=== PATIENT | male | born 1970 | race Caucasian/White ===

== ENCOUNTER 2016-08-05 10:51 | Day surgery (SDC) | payer OTHER ==
[~2016-08-05 10:51] MED LIST: BACITRACIN 50,000 UNITS/10 ML SYR IRR ONE; BUPIVACAINE 0.5% 30 ML SDV ONE; DEXAMETHASONE 4 MG/ML VIAL ONE; LIDOCAINE 2% 5 ML SDV ONE; ROPIVACAINE HCL 20 MG/10 ML INJ EP ONE; ceFAZolin 2 GM/DEXTROSE 100 ML IV ONE
[2016-08-05] MEDS ORDERED: LR 1,000 ML IV ONE (11:35)
[2016-08-05] MEDS ORDERED: CEFAZOLIN 2 GM/DEXTROSE/100 ML BAG IV ONE (11:38)
[2016-08-05] MEDS ORDERED: MIDAZOLAM 2 MG/2 ML VIAL ONE (12:17)
[2016-08-05] MEDS ORDERED: PROPOFOL/EMULSION 500 MG/50 ML BOTTLE IV ONE (12:23)
[2016-08-05] MEDS ORDERED: BUPIVACAINE 0.25% 30 ML SDV ONE (12:50)
[2016-08-05] MEDS ORDERED: KETOROLAC 30 MG/1 ML SDV ONE (14:56)
[2016-08-05] MEDS ORDERED: ONDANSETRON DISINTEGRATING 4 MG TAB PO PRN (14:59)
[2016-08-05] MEDS ORDERED: ONDANSETRON 4 MG/2 ML VIAL IVP PRN (14:59)
[2016-08-05] MEDS ORDERED: KETOROLAC 30 MG/1 ML SDV IVP ONE (15:00)
[2016-08-05] MEDS ORDERED: PROMETHAZINE HCL 25 MG TAB PO PRN (15:00)
[2016-08-05 15:27] LABS: % IMMATURE GRANULYOCYTES 0.4 % (0.0-1.1); ABSOLUTE IMMATURE GRANULOCYTES 0.02 10^3/uL (0.00-0.10); ADD DIFF? NO; ADD MORPH? NO; ADD SCAN? NO; ATYPICAL LYMPHOCYTE FLAG 10 (0-99); FRAGMENT RBC FLAG 0 (0-99); HEMATOCRIT 42.1 % (40.0-51.0); HEMOGLOBIN 15.3 g/dL (13.7-17.5); LEFT SHIFT FLG 0 (0-99); LIPEMIA HEMOLYSIS FLAG 90 (0-99); MEAN CELL HEMOGLOBIN 31.4 pg (27.9-34.1); MEAN CELL HEMOGLOBIN CONCENTR. 36.3 g/dL (32.4-36.7); MEAN CELL VOLUME 86.3 fL (81.5-99.8); PLATELET CLUMPS FLAG 0 (0-99); PLATELET COUNT 176 10^3/uL (150-400); RED BLOOD CELL COUNT 4.88 10^6/uL (4.40-6.38); RED CELL DISTRIBUTION WIDTH 11.8 % (11.5-15.2)
--- NOTE | 2016-08-05 18:03 | GOP ---
[f rep st] OPERATIVE REPORT DATE OF OPERATION: 08/05/2016 SURGEON: Bre Guzman DPM ANESTHESIA: Started as MAC and ended up with general. ANESTHESIOLOGIST: Santiago Queen MD. PREOPERATIVE DIAGNOSIS: Recalcitrant tibial sesamoiditis, left foot. Questionable osteochondral lesion. POSTOPERATIVE DIAGNOSIS: Recalcitrant tibial sesamoiditis, left foot, osteochondral lesion noted, plantar aspect of the 1st metatarsal head at the tibial sesamoid articulation. Subchondral loss noted of the tibial sesamoid. PROCEDURE PERFORMED: Excision of tibial sesamoid, left foot. FINDINGS: SPECIMENS: Sesamoid bone was sent for gross examination. In postoperative recovery, the patient was rather tired, he appeared to be doing well. CBC and differential ordered. We will check platelets, because of the oozing intraoperatively. I mentioned to his in recovery there was a need to change the anesthesia to a full general. She was not aware of any problems in the past. He once had a tumor taken off his knee without any issues. He was fitted with a Cryo/Cuff. His will be providing him transportation home. Prognosis good. He is to follow up in our office in 2 days for wound check. ESTIMATED BLOOD LOSS: Less than 8 cc. INDICATIONS: Greater than 1 year duration of pain in the left foot that did not respond to multiple conservative treatment efforts, which included inserts, 2 sets of orthotic devices, orthotic device providing the most relief was one with a firm Hope's extension, various athletic shoes, avoid walking barefooted , injections, post-activated therapy, rest from activities, period of cast boot immobilization. MRI study was completed, which suggested possible osteochondral lesion, and high-grade chondral loss through the metatarsal sesamoid articulation of the 1st metatarsophalangeal joint with bony reactive edema of the medial sesamoid bone. At this time, patient elects to proceed with surgery. DESCRIPTION OF PROCEDURE: Patient was brought into the operating room and placed on the operating table in a supine position. Intravenous sedation was administered by the anesthesiologist. Posterior and peripheral nerve block was obtained utilizing 18 cc of 1:1:1 mix of 0.2% ropivacaine, 0.5% Sensorcaine, and 2% Xylocaine plain. The lower extremity was prepped and draped in the usual sterile manner after the limb was elevated, exsanguinated with an Esmarch bandage. An ankle tourniquet was inflated to 220 mmHg and the procedure was begun. Webril padding was utilized under the ankle cuff. Attention was directed toward the plantar aspect of the 1st metatarsal head just medial to the flexor hallucis longus tendon. A linear incision was created , measuring approximately 3 cm in length, carefully deepened with care of neurovascular structures and clamped and cauterized bleeders. Incision was deepened through the fatty tissue, and the flexor hallucis longus tendon was identified and carefully retracted throughout the procedure, incision deepened through the periosteum, exposing the tibial sesamoid. Tibial sesamoid was carefully reflected free of its surrounding ligament insertions, these soft tissue areas were tagged for later reapproximation. Once the tibial sesamoid was removed, a distinct 2 x 3 mm osteochondral defect was indeed noted on the plantar aspect of the 1st metatarsal head. The site was drilled with a 3.5 K- wire to promote subchondral bleeding. The wound was copiously irrigated with bacitracin irrigation solution and the intersesamoid ligament was reattached to the medial ligaments and flexor hallucis brevis reapproximated to the ligament as well. Reapproximation achieved with a 2-0 Ethibond, and then with 2-0 and 3- 0 Vicryl sutures. The wound was again irrigated with bacitracin irrigation solution. Tourniquet released and a normal hyperemic response was noted to all digits. However, then there was more than expected bleeding. Sites were cauterized, and then Surgicel was utilized as well. Compression applied. There was not 1 active bleeder, but various smaller vessels that were oozing. Therefore, a silastic drain was utilized during closure. Subcutaneous closure achieved with Monocryl and the skin was closed with 4-0 Prolene and with 3-0 Prolene in a horizontal mattress and vertical mattress fashion and some interrupted sutures. Dressings included Xeroform, 4x4s, fluffs, Anurag reinforced with tape, and an Beto bandage. The patient tolerated the procedure and anesthesia well and left the operating room with vital signs stable and vascular status intact to all digits. Note with anesthesia: The patient appeared to be squirrely early on in the procedure, with movement of the upper extremity as well as the lower extremity, and with administering the local nerve block. Intermittant contraction of his foot as well as upper extremity. However, then time was given on several occasions to allow the block to set in. When the incision was created, there was guarding /movement and so , an additional 10 cc of 0.25% Marcaine was injected to enhance the anesthesia. However, even without an incision the patient kept locking up his foot, as well as his upper extremity, and it was decided to allow him to relax and to be able to perform the procedure a full general was needed. The MAC was transitioned to a full general anesthetic. The patient tolerated the procedure well thereafter. ADDITIONAL INJECTABLES: As stated above, the 0.25% Marcaine. /[id number]/MODL MTDD
== END 2016-08-05 16:07 | disposition home or self-care (01) ==
LOC: FSGY 10:51
PROVIDERS: ATTEND Podiatrist
PROC: 0QBP0ZZ Excision of Left Metatarsal, Open Approach (ICD-10-PCS; principal; 2016-08-05 12:00)
DX: M25.872 Other specified joint disorders, left ankle and foot (principal); M19.072 Primary osteoarthritis, left ankle and foot
CPT/HCPCS: 28315; C1769; J0690; J1100; J1885; J2250; J2704; J2795